=== PATIENT | male | born 1940 | race Caucasian/White ===

== ENCOUNTER 2020-03-22 13:51 | Emergency (ER) | payer MEDICARE, OTHER ==
[2020-03-22] MEDS ORDERED: Sodium Chloride 0.9% 1,000 ML IV SCH (14:15)
--- NOTE | 2020-03-22 14:33 | EDM.PDOC ---
ED HPI GENERAL MEDICAL PROBLEM - General Chief Complaint: Gastrointestinal Problem Stated Complaint: COVID SYMTOMS Time Seen by Provider: 03/22/20 14:00 Source of Information: Reports: Patient, Family History Limitations: Reports: No Limitations - History of Present Illness INITIAL COMMENTS - FREE TEXT/NARRATIVE: Started having diarrhea for the past 4 days about 3-4 times daily but sine this am when he woke up he has had 4-6 diarrheal episodes feels weak , tired and fatigued . 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, had seizure then treatment has been effective minimally productive cough noted Onset: Gradual Onset Date: 03/18/20 Duration: Day(s): (4), Getting Worse Location: Reports: Abdomen Quality: Reports: Ache, Dull Severity: Moderate Improves with: Reports: None Worsens with: Reports: None Context: Reports: Sick Contact Associated Symptoms: Reports: Loss of Appetite, Malaise, Weakness - Related Data Allergies Allergy/AdvReac Type Severity Reaction Status Date / Time No Known Allergies Allergy Verified 03/22/20 14:32 Home Meds: Home Meds Aspirin [Halfprin] 81 mg PO DAILY 03/22/20 [History] Cholecalciferol (Vitamin D3) [Vitamin D3] 1,000 unit PO BID 03/22/20 [History] Multivit with Min #53/FA/K/Q10 [Dekas Plus Softgel] 1 each PO DAILY 03/22/20 [History] Ondansetron [Zofran ODT] 4 mg PO Q6H PRN #20 tab.dis 03/22/20 [Rx] Simvastatin 20 mg PO DAILY 03/22/20 [History] lamoTRIgine [Lamotrigine] 150 mg PO BID 03/22/20 [History] metroNIDAZOLE [Flagyl] 500 mg PO Q12H #20 tab 03/22/20 [Rx] sitaGLIPtin Phos/Metformin HCl [Janumet 50-1,000 MG] 1 each PO BID 03/22/20 [History] ED ROS GENERAL - Review of Systems Review Of Systems: Comprehensive ROS is negative, except as noted in HPI. Constitutional: Reports: Chills, Malaise, Weakness HEENT: Reports: No Symptoms Respiratory: Reports: Cough Cardiovascular: Reports: No Symptoms Endocrine: Reports: Fatigue GI/Abdominal: Reports: Abdominal Pain, Anorexia, Diarrhea, Nausea Musculoskeletal: Reports: No Symptoms Skin: Reports: No Symptoms Neurological: Reports: Dizziness, Headache Psychiatric: Reports: No Symptoms ED EXAM, GI/ABD - Physical Exam Exam: See Below Exam Limited By: No Limitations General Appearance: Alert, WD/WN, No Apparent Distress Eyes: Bilateral: EOMI Nose: Normal Inspection Throat/Mouth: Normal Oropharynx Head: Atraumatic, Normocephalic Neck: Supple, Non-Tender Respiratory/Chest: No Respiratory Distress Cardiovascular: Normal Peripheral Pulses GI/Abdominal Exam: Soft, Non-Tender, Abnormal Bowel Sounds (hyperactive) Back Exam: Normal Inspection Extremities: Normal Inspection Neurological: Alert, Oriented, CN II-XII Intact Psychiatric: Normal Affect Skin Exam: Warm Course - Vital Signs Last Recorded V/S: Last Vital Signs Temp 36.6 C 03/22/20 16:20 Pulse 76 03/22/20 16:20 Resp 16 03/22/20 16:20 BP 148/88 H 03/22/20 16:20 Pulse Ox 98 03/22/20 16:20 - Orders/Labs/Meds Orders: Active Orders 24 hr Category Date Time Status Chest 1V Frontal [CR] Stat Exams 03/22/20 14:10 Taken STOOL CULTURE Stat Lab 03/22/20 14:30 Ordered Labs: Laboratory Tests 03/22/20 03/22/20 03/22/20 Range/Units 14:10 14:40 14:40 WBC 6.1 (4.5-12.0) X10-3/uL RBC 4.47 (4.30-5.75) x10(6)uL Hgb 14.3 (13.5-17.8) g/dL Hct 42.0 (30.0-51.3) % MCV 93.8 (80-96) fL MCH 31.9 (27.7-33.6) pg MCHC 34.0 (32.2-35.4) g/dL RDW 11.8 (11.5-15.5) % Plt Count 249 (125-369) X10(3)uL Sodium 136 (135-145) mmol/L Potassium 4.1 (3.5-5.3) mmol/L Chloride 99 L (100-110) mmol/L Carbon Dioxide 30 (21-32) mmol/L BUN 15 (7-18) mg/dL Creatinine 1.0 (0.70-1.30) mg/dL Est Cr Clr Drug Dosing 59.85 mL/min Estimated GFR (MDRD) > 60 (>60) BUN/Creatinine Ratio 15.0 (9-20) Glucose 142 H (80-116) mg/dL Calcium 9.1 (8.6-10.2) mg/dL NT-Pro-B Natriuret Pep (<=450) pg/mL Urine Color (YELLOW) Urine Appearance (CLEAR) Urine pH (5.0-6.5) Ur Specific [place] (1.010-1.025) Urine Protein (NEGATIVE) mg/dL Urine Glucose (UA) (NORMAL) mg/dL Urine Ketones (NEGATIVE) mg/dL Urine Occult Blood (NEGATIVE) Urine Nitrite (NEGATIVE) Urine Bilirubin (NEGATIVE) Urine Urobilinogen (NEGATIVE) mg/dL Ur Leukocyte Esterase (NEGATIVE) Urine RBC (0-5) Urine WBC (0-5) Ur Squamous Epith Cells (NS,R,O) Urine Bacteria (NS) SARS-CoV-2 RNA (THADDEUS) Positive H (NEGATIVE) 03/22/20 03/22/20 Range/Units 14:40 14:53 WBC (4.5-12.0) X10-3/uL RBC (4.30-5.75) x10(6)uL Hgb (13.5-17.8) g/dL Hct (30.0-51.3) % MCV (80-96) fL MCH (27.7-33.6) pg MCHC (32.2-35.4) g/dL RDW (11.5-15.5) % Plt Count (125-369) X10(3)uL Sodium (135-145) mmol/L Potassium (3.5-5.3) mmol/L Chloride (100-110) mmol/L Carbon Dioxide (21-32) mmol/L BUN (7-18) mg/dL Creatinine (0.70-1.30) mg/dL Est Cr Clr Drug Dosing mL/min Estimated GFR (MDRD) (>60) BUN/Creatinine Ratio (9-20) Glucose (80-116) mg/dL Calcium (8.6-10.2) mg/dL NT-Pro-B Natriuret Pep 22 (<=450) pg/mL Urine Color Yellow (YELLOW) Urine Appearance Clear (CLEAR) Urine pH 5.0 (5.0-6.5) Ur Specific [place] 1.025 (1.010-1.025) Urine Protein 30 H (NEGATIVE) mg/dL Urine Glucose (UA) Normal (NORMAL) mg/dL Urine Ketones 15 H (NEGATIVE) mg/dL Urine Occult Blood Negative (NEGATIVE) Urine Nitrite Negative (NEGATIVE) Urine Bilirubin Negative (NEGATIVE) Urine Urobilinogen Normal (NEGATIVE) mg/dL Ur Leukocyte Esterase Negative (NEGATIVE) Urine RBC Not seen (0-5) Urine WBC 0-5 (0-5) Ur Squamous Epith Cells Few H (NS,R,O) Urine Bacteria Few H (NS) SARS-CoV-2 RNA (THADDEUS) (NEGATIVE) Meds: Medications Discontinued Medications Generic Name Dose Route Start Last Admin Trade Name Freq PRN Reason Stop Dose Admin Acetaminophen 1,000 mg 03/22/20 15:26 03/22/20 15:31 Tylenol Extra Strength PO 03/22/20 15:27 1,000 mg ONETIME ONE Administration Sodium Chloride 1,000 mls @ 999 mls/hr 03/22/20 14:15 03/22/20 14:31 Normal Saline IV 999 mls/hr ASDIRECTED MAT Administration Metronidazole 500 mg 03/22/20 15:30 03/22/20 15:31 Flagyl PO 500 mg Q8H MAT Administration Ondansetron HCl 4 mg 03/22/20 15:26 03/22/20 15:31 Zofran Odt PO 03/22/20 15:27 4 mg ONETIME ONE Administration - Re-Assessments/Exams Free Text/Narrative Re-Assessment/Exam: 03/22/20 15:18 pt started on IVF Had labs done including COVID screen reviewed labs and has positive COVID test Departure - Departure Time of Disposition: 16:25 Disposition: Home, Self-Care 01 Condition: Fair Clinical Impression: Gastroenteritis, COVID-19 virus infection - Discharge Information *PRESCRIPTION DRUG MONITORING PROGRAM REVIEWED*: Not Applicable *COPY OF PRESCRIPTION DRUG MONITORING REPORT IN PATIENT PRANAY: Not Applicable Prescriptions: metroNIDAZOLE [Flagyl] 500 mg PO Q12H #20 tab Ondansetron [Zofran ODT] 4 mg PO Q6H PRN #20 tab.dis PRN Reason: Nausea Instructions: Food Choices to Help Relieve Diarrhea, Adult, COVID-19: How to Protect Yourself and Others - CDC, Dehydration, Elderly, [id number], Diarrhea, Adult, [id number] Referrals: Speedy Mackey MD [Primary Care Provider] - Forms: ED Department Discharge Additional Instructions: 1) Increase fluid intake 2) Reynolds diet 3) Start probiotic to help with diarrhea 4) Call with any concerns Sepsis Event Note (ED) - Evaluation Sepsis Screening Result: No Definite Risk - Focused Exam Vital Signs: Vital Signs Temp Pulse Resp BP Pulse Ox 03/22/20 16:20 36.6 C 76 16 148/88 H 98 03/22/20 13:59 37.0 C 73 16 153/91 H 98 - My Orders Last 24 Hours: My Active Orders 03/22/20 14:10 Chest 1V Frontal [CR] Stat 03/22/20 14:30 STOOL CULTURE Stat - Assessment/Plan Last 24 Hours: My Active Orders 03/22/20 14:10 Chest 1V Frontal [CR] Stat 03/22/20 14:30 STOOL CULTURE Stat
[2020-03-22] MEDS ORDERED: Acetaminophen 500 MG Tab PO ONE (15:26)
[2020-03-22] MEDS ORDERED: Ondansetron 4 MG Tab.DIS PO ONE (15:26)
[2020-03-22] MEDS ORDERED: metroNIDAZOLE 500 MG Tab PO SCH (15:30)
--- NOTE | 2020-03-23 11:34 | CR ---
INDICATION: Fever. CHEST ONE VIEW: An AP portable upright view of the chest was obtained 03/22/20 - no comparison. Heart did not appear enlarged and appeared grossly normal in shape. The aorta is tortuous with calcification minimally in the arch. A definite active infiltrate or effusion was not identified. However, bronchial cuffing is noted in the lower lung diaz which may be on the basis of active peribronchial disease and/or fibrosis, and should be correlated clinically. MTDD
== END 2020-03-22 16:24 | disposition home or self-care (01) ==
LOC: FB.ED 13:51
DX: U07.1 COVID-19 (principal); K52.9 Noninfective gastroenteritis and colitis, unspecified
CPT/HCPCS: 36415; 71045; 80048; 81001; 83880; 85027; 87230; 99284; A9270; J7030; U0002

== ENCOUNTER 2021-11-09 06:47 | Day surgery (SDC) | payer MEDICARE, OTHER ==
[~2021-11-09 06:47] MED LIST: Sodium Chloride 0.9% 10 ML Syringe FLUSH PRN
[2021-11-09] MEDS ORDERED: Midazolam 1 MG/ML 2 ML SDV IV ONE (06:48)
[2021-11-09] MEDS ORDERED: fentaNYL 100 MCG/2 ML SDV IV ONE (06:48)
[2021-11-09] MEDS: Lactated Ringers 1,000 ML IV SCH (07:35)
[2021-11-09] MEDS: acetaZOLAMIDE 500 MG Cap.ER PO ONE (09:05)
== END 2021-11-09 09:15 | disposition home or self-care (01) ==
LOC: FB.SDS 06:47
PROVIDERS: ATTEND Ophthalmology
DX: E11.36 Type 2 diabetes mellitus with diabetic cataract (principal); H25.13 Age-related nuclear cataract, bilateral; H40.1131 Primary open-angle glaucoma, bilateral, mild stage; H21.81 Floppy iris syndrome; H02.831 Dermatochalasis of right upper eyelid; H02.834 Dermatochalasis of left upper eyelid; H52.03 Hypermetropia, bilateral; H52.223 Regular astigmatism, bilateral; E11.9 Type 2 diabetes mellitus without complications; E53.8 Deficiency of other specified B group vitamins; L21.9 Seborrheic dermatitis, unspecified; G40.909 Epilepsy, unspecified, not intractable, without status epilepticus; E78.2 Mixed hyperlipidemia; L57.0 Actinic keratosis; L30.9 Dermatitis, unspecified; E66.9 Obesity, unspecified; F17.210 Nicotine dependence, cigarettes, uncomplicated; Z68.30 Body mass index [BMI] 30.0-30.9, adult; Z79.899 Other long term (current) drug therapy; Z86.16 Personal history of COVID-19; Z98.890 Other specified postprocedural states
CPT/HCPCS: 82947; A9270-GY; J2250; J3010; J7120; V2632

== ENCOUNTER 2021-11-23 06:58 | Day surgery (SDC) | payer MEDICARE, OTHER, BC ==
[~2021-11-23 06:58] MED LIST changes: +Lactated Ringers 1,000 ML IV PRN
[2021-11-23] MEDS ORDERED: Labetalol 100 MG/20 ML MDV IV ONE (06:59)
[2021-11-23] MEDS ORDERED: fentaNYL 100 MCG/2 ML SDV IV ONE (06:59)
[2021-11-23] MEDS ORDERED: Midazolam 1 MG/ML 2 ML SDV IV ONE (06:59)
[2021-11-23] MEDS ORDERED: acetaZOLAMIDE 500 MG Cap.ER PO ONE (08:30)
== END 2021-11-23 09:15 | disposition home or self-care (01) ==
LOC: FB.SDS 06:58
PROVIDERS: ATTEND Ophthalmology
DX: E11.36 Type 2 diabetes mellitus with diabetic cataract (principal); H25.13 Age-related nuclear cataract, bilateral; H40.1131 Primary open-angle glaucoma, bilateral, mild stage; H02.831 Dermatochalasis of right upper eyelid; H02.834 Dermatochalasis of left upper eyelid; H52.03 Hypermetropia, bilateral; H52.223 Regular astigmatism, bilateral; H21.81 Floppy iris syndrome; I10 Essential (primary) hypertension; E53.8 Deficiency of other specified B group vitamins; L21.9 Seborrheic dermatitis, unspecified; G40.909 Epilepsy, unspecified, not intractable, without status epilepticus; E66.9 Obesity, unspecified; Z79.899 Other long term (current) drug therapy; Z79.4 Long term (current) use of insulin; E78.00 Pure hypercholesterolemia, unspecified; Z98.890 Other specified postprocedural states; F17.210 Nicotine dependence, cigarettes, uncomplicated; Z68.30 Body mass index [BMI] 30.0-30.9, adult; E78.2 Mixed hyperlipidemia; L57.0 Actinic keratosis
CPT/HCPCS: 82947; A9270-GY; J2250; J3010; J3490; J7120; V2632

== ENCOUNTER 2023-01-06 08:18 | Day surgery (SDC) | payer MEDICARE, OTHER ==
[2023-01-06] MEDS ORDERED: Propofol 200 MG/20 ML SDV IV ONE (08:19)
[2023-01-06] MEDS ORDERED: Sodium Chloride 0.9% 10 ML Syringe FLUSH PRN (08:30)
[2023-01-06] MEDS: Lactated Ringers 1,000 ML IV SCH (09:21)
[2023-01-06] MEDS: Simethicone Drops 40 MG/0.6 ML 30 ML Bottle PO ONE (10:10)
== END 2023-01-06 11:30 | disposition home or self-care (01) ==
LOC: FB.SDS 08:18
PROVIDERS: ATTEND Surgery
DX: D12.0 Benign neoplasm of cecum (principal); E11.22 Type 2 diabetes mellitus with diabetic chronic kidney disease; N18.30 Chronic kidney disease, stage 3 unspecified; Z80.0 Family history of malignant neoplasm of digestive organs; Z79.899 Other long term (current) drug therapy; Z79.4 Long term (current) use of insulin
CPT/HCPCS: 00811; 45380; 82947; 88305; A9270; J2704; J7120

== ENCOUNTER 2024-02-21 18:29 | Emergency (ER) | payer MEDICARE, OTHER ==
[2024-02-21 19:00] LABS: BASOPHILS ABSOLUTE AUTO 0.1 x10-3/uL (0.0-0.3); BASOPHILS PERCENT AUTO 0.7 % (0.3-3.8); BLOOD UREA NITROGEN,BUN 11 mg/dL (7-18); BUN/CREATININE RATIO 9.2 (9-20); CALCIUM 9.2 mg/dL (8.6-10.2); CARBON DIOXIDE,CO2 28 mmol/L (21-32); CHLORIDE,CL 100 mmol/L (100-110); CREATININE 1.2 mg/dL (0.70-1.30); EOSINOPHILS ABSOLUTE AUTO 0.3 x10-3/uL (0.0-0.6); EOSINOPHILS PERCENT AUTO 2.4 % (0.1-6.8); ESTIMATED GFR 61 mL/min (>60); GLUCOSE RANDOM 165 mg/dL (80-116); HEMATOCRIT 43.1 % (38.3-50.1); HEMOGLOBIN 14.4 g/dL (12.9-17.7); LYMPHOCYTES ABSOLUTE AUTO 4.1 x10-3/uL (0.5-4.5); LYMPHOCYTES PERCENT AUTO 37.9 % (15.8-45.3); MEAN CORPUSCULAR HGB CONC 33.3 g/dL (28.7-35.3); MEAN CORPUSCULAR VOLUME 93.1 fL (80.8-98.7); MONOCYTES ABSOLUTE AUTO 0.9 x10-3/uL (0.0-1.2); MONOCYTES PERCENT AUTO 8.4 % (5.5-15.2); NEUTROPHILS ABSOLUTE AUTO 5.4 x10-3/uL (1.7-6.9); NEUTROPHILS PERCENT AUTO 50.6 % (40.3-71.8); PLATELET COUNT,PLT 356 x10(3)uL (117-477); POTASSIUM,K 3.8 mmol/L (3.5-5.3); RED BLOOD CELL COUNT 4.64 x10(6)uL (3.90-5.90); RED CELL DISTRIBUTION WIDTH 13.3 % (12.4-15.0); SODIUM,NA 140 mmol/L (135-145); WHITE BLOOD CELL COUNT,WBC 10.7 x10-3/uL (3.2-10.1)
[2024-02-21 19:06] LABS: A/G RATIO 1.2; ALANINE AMINOTRANSFERASE,ALT 27 U/L (12-36); ALBUMIN 3.9 g/dL (3.2-4.6); ALKALINE PHOSPHATASE 74 IU/L (56-112); ASPARTATE AMNIOTRANSFERASE,AST 18 IU/L (5-25); BILIRUBIN TOTAL 0.5 mg/dL (0.1-1.3); PROTEIN TOTAL,TP 7.3 g/dL (6.0-8.0)
[2024-02-21] MEDS: Sodium Chloride 0.9% 1,000 ML IV SCH (19:17)
[2024-02-21 19:18] LABS: TROPONIN I 14.2 pg/mL (4.0-60.3); TSH ULTRASENSITIVE 5.05 IU/mL (0.36-3.74)
[2024-02-21] MEDS ORDERED: Magnesium Sulfate/Water Premix 2 GM in Premix Bag 1 BAG IV ONE (21:03)
== END 2024-02-21 21:35 | disposition home or self-care (01) ==
LOC: FB.ED 18:29
DX: R40.4 Transient alteration of awareness (principal); R55 Syncope and collapse; E78.00 Pure hypercholesterolemia, unspecified; E11.9 Type 2 diabetes mellitus without complications; Z79.899 Other long term (current) drug therapy; Z79.84 Long term (current) use of oral hypoglycemic drugs; Z79.4 Long term (current) use of insulin
CPT/HCPCS: 36415; 70450; 71045; 80053; 82947; 83735; 84443; 84484; 85025; 93005; 96360; 96361; 99285-25; J7030